=== PATIENT | female | born 1960 | race Caucasian/White ===

== ENCOUNTER 2022-12-03 10:00 | Outpatient (RCR) | payer MEDICAID, SELFPAY | END 2023-04-02 23:59 | disposition home or self-care (01) | PROVIDERS: PCP Family Medicine; Visit Provider Family Medicine | DX: M54.42 Lumbago with sciatica, left side (principal); Z51.89 Encounter for other specified aftercare | CPT/HCPCS: 97110; 97140; 97162 ==

== ENCOUNTER 2024-01-07 08:27 | Outpatient (CLI) | payer MEDICARE, BC, SELFPAY | END 2024-01-07 08:28 | disposition home or self-care (01) | PROVIDERS: PCP Family Medicine; Visit Provider Family Medicine | DX: M54.16 Radiculopathy, lumbar region (principal); M51.369 Other intervertebral disc degeneration, lumbar region without mention of lumbar back pain or lower extremity pain | CPT/HCPCS: 62323; J0702; Q9966 ==